=== PATIENT | female | born 1985 | race Hispanic/Latino ===

== ENCOUNTER 2017-11-20 14:25 | Emergency (ER) | payer SELFPAY ==
[~2017-11-20] VITALS: Ht 154.9 cm; Wt 54.7 kg
[2017-11-20 17:49] LABS: BASOPHIL (%) 0.6 % (0-1); EOSINOPHIL (%) 0.2 % (0-5); HEMATOCRIT 41.8 % (36.0-46.0); HEMOGLOBIN 14.3 G/DL (11.9-15.5); IMMATURE GRANULOCYTE (%) 0.3 % (0.0-0.7); LYMPHOCYTE (%) 30.5 % (15-42); MCH 29.7 PG (29.0-34.0); MCHC 34.2 G/DL (30.0-36.0); MCV 86.9 FL (83-99); MONOCYTE (%) 3.6 % (3-12); MONOCYTE COUNT 0.2 K/uL (0-0.8); NEUTROPHIL (%) 64.8 % (45-76); NEUTROPHIL COUNT 4.2 K/uL (1.8-6.4); PLATELET COUNT 299 K/uL (156-360); RBC DIS.WIDTH-CV 12.2 % (11.8-14.6); RBC DIS.WIDTH-SD 39.4 % (39-53); RED BLOOD COUNT 4.81 M/uL (3.80-5.20); WHITE BLOOD COUNT 6.4 K/uL (4.1-10.2)
[2017-11-20 18:11] LABS: ALBUMIN 4.8 G/DL (3.2-4.8); CHLORIDE 105 MEQ/L (99-109); POTASSIUM 4.2 MEQ/L (3.7-5.4); SODIUM 139 MEQ/L (136-147); TOTAL BILIRUBIN 0.4 MG/DL (0.0-1.0)
[2017-11-20 18:17] LABS: ALKALINE PHOSPHATASE 66 IU/L (3-129); ALT (GPT) 23 IU/L (3-49); AST (GOT) 24 IU/L (2-34); CREATININE 0.6 MG/DL (0.6-1.3); GFR ESTIMATE (CALCULATED) > 59 mL/min/; GLUCOSE 102 mg/dL (70-99); TOTAL PROTEIN 7.8 G/DL (6.4-8.3); UREA NITROGEN (BUN) 10 mg/dL (9-23)
[2017-11-20 19:02] LABS: QUANTITATIVE HCG < 4.0 MIU/ML
[2017-11-20 20:32] VITALS: BP 134/83
== END 2017-11-20 20:32 | disposition home or self-care (01) ==
LOC: EME 14:25
PROVIDERS: Physician Assistant
DX: R51 Headache (principal); M54.2 Cervicalgia; R07.9 Chest pain, unspecified
CPT/HCPCS: 70450; 71046; 80053; 84702; 85025; 93005; 99281; 99284; J8540